=== PATIENT | female | born 1975 | race Two or more races ===

== ENCOUNTER 2025-04-08 13:51 | Inpatient (IN) | payer OTHER ==
[~2025-04-08] VITALS: Ht 157.5 cm; Wt 91.6 kg
[~2025-04-08 13:51] MED LIST: BUTALBIT-ACETA1 EACH PO; TOPROL XL100 M1 PO
--- NOTE | 2025-04-08 15:13 | NUR ---
SE RECIBE PTE ALERTA, ORIENTADA X3 Y AMBULANDO. PTE REFIERE DOLOR PELVICO HACE VARIOS PRO. PTE REFIERE QUE MANANA MAGALY. DIAZ LE REALIZA CIRUGIA. SE MIDEN S/V Y SE UBICA.
--- NOTE | 2025-04-08 16:19 | NUR ---
PTE CONSULTADA CON QUIEN REFIERE PONDRA ORDENES DE ADMISION.
[2025-04-08] MEDS ORDERED: MORPHINE SULFATE 4 MG/ML VIAL IV PRN (16:30)
[2025-04-08] MEDS ORDERED: ACETAMINOPHEN 500 MG GEL..CAP PO PRN (16:30)
[2025-04-08] MEDS ORDERED: CLINDAMYCIN PHOSPHATE 150 MG/ML (900mg) IV SCH (16:30)
[2025-04-08] MEDS ORDERED: RINGERS SOLUTION,LACTATED 1,000 ML IV SCH (16:30)
[2025-04-08] MEDS ORDERED: METRONIDAZOLE/SODIUM CHLORIDE 500 MG/100 ML PIGGYBACK IV SCH (16:30)
[2025-04-08] MEDS ORDERED: METOPROLOL SUCCINATE 100 MG TAB.SR.24H PO SCH (17:00)
[2025-04-08 20:43] VITALS: BP 142/80
[2025-04-09 01:14] LABS: BASO % 0.3 % (0.1-1.2); EOS # 0.11 (0.04-0.54); EOS % 0.7 % (0.7-7.0); LYMPH # 3.53 (1.18-3.74); LYMPH % 22.1 % (19.3-53.1); MEAN PLATELET VOLUME 9.50 fl (9.4-12.4); MONO # 1.31 (0.24-0.82); MONO % 8.2 % (4.7-12.5); NEUT # 10.92 (1.56-6.13); NEUT % 68.3 % (34.0-71.1); RED CELL DISTRIBUTION WIDTH 16.1 % (11.6-14.4)
[2025-04-09 01:59] VITALS: BP 140/81
[2025-04-09] MEDS ORDERED: LOSARTAN POTASSIUM 50 MG TABLET PO SCH (09:00)
[2025-04-09] MEDS ORDERED: RINGERS SOLUTION,LACTATED 1,000 ML IV SCH (10:15)
[2025-04-09] MEDS ORDERED: ONDANSETRON HCL 2 MG/ML VIAL IV PRN (10:30)
[2025-04-09] MEDS ORDERED: MEPERIDINE HCL/PF 25 MG/ML VIAL IV PRN (10:30)
[2025-04-09] MEDS ORDERED: MORPHINE SULFATE 4 MG/ML VIAL IV ONE ×2 (10:45→11:15)
[2025-04-09] MEDS ORDERED: FAMOTIDINE/PF 20 MG/2 ML VIAL IV NR (11:00)
[2025-04-09] MEDS ORDERED: ONDANSETRON HCL 2 MG/ML VIAL IV ONE (11:15)
[2025-04-09 12:00] VITALS: BP 155/71
[2025-04-09] MEDS ORDERED: ACETAMINOPHEN 500 MG GEL..CAP PO PRN (16:00)
[2025-04-09] MEDS ORDERED: MORPHINE SULFATE 4 MG/ML VIAL IV PRN (16:30)
[2025-04-09 16:32] VITALS: BP 135/79
[2025-04-09] MEDS ORDERED: CLINDAMYCIN PHOSPHATE 150 MG/ML (900mg) IV SCH (17:00)
[2025-04-09] MEDS ORDERED: FAMOTIDINE/PF 20 MG/2 ML VIAL IV SCH (17:00)
[2025-04-09] MEDS ORDERED: CYCLOBENZAPRINE HCL 5 MG TABLET PO PRN (17:00)
[2025-04-09] MEDS ORDERED: OxyCODONE HCL 5 MG TABLET (ROXICODONE) PO PRN (17:30)
[2025-04-09 18:23] VITALS: BP 115/71
[2025-04-09 20:54] LABS: BASO % 0.2 % (0.1-1.2); EOS # 0.00 (0.04-0.54); EOS % 0.0 % (0.7-7.0); LYMPH # 1.38 (1.18-3.74); LYMPH % 5.0 % (19.3-53.1); MEAN PLATELET VOLUME 10.30 fl (9.4-12.4); MONO # 1.86 (0.24-0.82); MONO % 6.8 % (4.7-12.5); NEUT # 24.10 (1.56-6.13); NEUT % 87.5 % (34.0-71.1); RED CELL DISTRIBUTION WIDTH 16.3 % (11.6-14.4)
[2025-04-09 21:22] VITALS: BP 126/79
[2025-04-09 21:22] LABS: ALT/SGPT 20.0 U/L (12-78); AST/SGOT 17.0 U/L (15-37); BILIRUBIN TOTAL 0.42 mg/dL (0.3-1.2); BUN CREA RATIO 7.0 (7.0-25.0); CREATININE SERUM 0.85 mg/dL (0.55-1.02); GFR 71.38; GLOBULINA 3.7 G/DL (2.4-3.5); GLUCOSE FASTING 136.0 mg/dL (65-100); OSMOLALITY SERUM 277.0 MOSM/KG (275-295)
[2025-04-09 21:59] VITALS: O2SAT 99
[2025-04-09 23:23] LABS: URINE APPEARANCE Clear; URINE BILIRRUBIN Negative (NEGATIVE); URINE BLOOD Large; URINE COLOR Yellow; URINE GLUCOSE Negative (NEGATIVE); URINE KETONE Trace (NEGATIVE); URINE LEUKOCYTE Moderate; URINE NITRATE Negative; URINE PROTEIN Trace (NEGATIVE); URINE UROBILINOGEN 0.2 E.U./dl
[2025-04-09 23:24] LABS: URINE BACTERIA 63.6 uL (0.0-1933); URINE EPITHELIAL CELLS 16.4 uL (0.0-38.8); URINE RBC 919.7 uL (0.0-20.8); URINE WBC 128.4 uL (0.0-23.2)
[2025-04-09 23:31] LABS: URINE CAST 0.14 uL (0.0-1.40)
[2025-04-10 01:46] VITALS: BP 123/75
[2025-04-10 08:41] VITALS: BP 160/89
[2025-04-10] MEDS ORDERED: GABAPENTIN 100 MG CAPSULE PO PRN (09:00)
[2025-04-10] MEDS ORDERED: DOCUSATE SODIUM 100MG CAP PO SCH (09:00)
[2025-04-10] MEDS ORDERED: SIMETHICONE 125 MG CAPSULE PO SCH (09:00)
[2025-04-10] MEDS ORDERED: CYCLOBENZAPRINE HCL 5 MG TABLET PO SCH (09:00)
[2025-04-10 09:06] LABS: BASO % 0.3 % (0.1-1.2); EOS # 0.01 (0.04-0.54); EOS % 0.0 % (0.7-7.0); LYMPH # 2.43 (1.18-3.74); LYMPH % 9.2 % (19.3-53.1); MEAN PLATELET VOLUME 10.20 fl (9.4-12.4); MONO # 1.84 (0.24-0.82); MONO % 7.0 % (4.7-12.5); NEUT # 21.96 (1.56-6.13); NEUT % 83.0 % (34.0-71.1); RED CELL DISTRIBUTION WIDTH 16.5 % (11.6-14.4)
[2025-04-10 13:45] VITALS: BP 160/80; O2SAT 100
[2025-04-10 16:00] VITALS: BP 150/80
[2025-04-10 20:18] VITALS: BP 150/80
[2025-04-11] VITALS: BP 141/80
[2025-04-11 07:54] LABS: BASO % 0.3 % (0.1-1.2); EOS # 0.18 (0.04-0.54); EOS % 0.9 % (0.7-7.0); LYMPH # 2.00 (1.18-3.74); LYMPH % 10.5 % (19.3-53.1); MEAN PLATELET VOLUME 10.00 fl (9.4-12.4); MONO # 1.66 (0.24-0.82); MONO % 8.7 % (4.7-12.5); NEUT # 15.01 (1.56-6.13); NEUT % 78.9 % (34.0-71.1); RED CELL DISTRIBUTION WIDTH 16.6 % (11.6-14.4)
[2025-04-11 08:10] VITALS: BP 151/85
[2025-04-11] MEDS ORDERED: COLACE100 MG PO (14:06)
[2025-04-11] MEDS ORDERED: PAIN RELIEVER500 M2 PO (14:06)
[2025-04-11] MEDS ORDERED: CYCLOBENZAPRINE5 MG PO (14:06)
== END 2025-04-11 14:18 | disposition home or self-care (01) | DRG 743 ==
LOC: ER 14:05 → OB/GYN 16:50
PROVIDERS: ADMIT General Practice; ATTEND General Practice
PROC: 0UT90ZZ Resection of Uterus, Open Approach (ICD-10-PCS; principal; 2025-04-08)
PROC: 0UT70ZZ Resection of Bilateral Fallopian Tubes, Open Approach (ICD-10-PCS; 2025-04-08)
PROC: 0UT20ZZ Resection of Bilateral Ovaries, Open Approach (ICD-10-PCS; 2025-04-08)
PROC: 0USG0ZZ Reposition Vagina, Open Approach (ICD-10-PCS; 2025-04-08)
DX: D25.1 Intramural leiomyoma of uterus (principal); D25.2 Subserosal leiomyoma of uterus; D25.0 Submucous leiomyoma of uterus; N80.03 Adenomyosis of the uterus; N93.9 Abnormal uterine and vaginal bleeding, unspecified; R10.2 Pelvic and perineal pain